=== PATIENT | female | born 1960 | race African-American/Black ===

== ENCOUNTER 2019-07-31 10:58 | Emergency (ER) | payer MEDICAID ==
[~2019-07-31] VITALS: Ht 167.6 cm; Wt 89.8 kg
[2019-07-31 11:10] VITALS: BP 141/88
--- NOTE | 2019-07-31 11:10 | NUR ---
ED Nurse Note: Patient walked into ED from home c/o of angioedema flare-up. Per patient, she has had angioedema since she was a child. Patient states her left cheek and lips became swollen, and she comes into the ED once she feels her tongue start to swell. Patient AxO x 4, no s/s of acute distress. VSS.
[2019-07-31] MEDS ORDERED: DiphenhydrAMINE 50mg/ml Inj IVP ONE (11:15)
[2019-07-31] MEDS ORDERED: Solu-MEDROL 125mg Inj IVP ONE (11:15)
--- NOTE | 2019-07-31 11:19 | Emergency Room Report ---
History of Present Illness General Chief Complaint: Allergic Reaction Source: Patient Present Illness HPI 58-year-old female history of urticaria presented for possible allergic reaction. She states she woke up this morning with some left-sided facial swelling and urticaria. She has unknown allergies besides penicillin at this time. She denies any new soaps lotions creams or foods. No shortness of breath nausea or vomiting. Seen last month at an outside facility for the same prescribed antihistamines and steroids with improvement. She does carry an EpiPen but has not had to use it in the past Allergies: Coded Allergies: PENICILLINS (Verified Allergy, Unknown, 07/31/19) Nursing Documentation-[facility] Past Medical History: No Stated History Review of Systems All Other Systems: negative except mentioned in HPI Physical Exam Vital Signs Date Time Temp Pulse Resp B/P (MAP) Pulse Ox O2 Delivery O2 Flow Rate FiO2 07/31/19 11:02 97.9 100 15 141/88 (105) 96 Room Air Sp02 EP Interpretation: reviewed, normal General Appearance: well appearing, no apparent distress Head: normocephalic, atraumatic Eyes: bilateral eye PERRL, bilateral eye EOMI ENT: hearing grossly normal, moist mucus membranes, other - No obvious oral edema noted, lower lip swelling noted, left facial edema noted Neck: full range of motion, supple Respiratory: lungs clear, normal breath sounds, no rhonchi, no respiratory distress, no retraction, no wheezing Cardiovascular #1: normal peripheral pulses, no murmur, other - Accelerated rate with regular rhythm Gastrointestinal: non tender, soft, non-distended, no guarding Neurologic: alert, oriented x3, no focal defects Skin: normal color, warm/dry Medical Decision Making Diagnostic Impression: Primary Impression: Allergic reaction ER Course Differential diagnosis included but not limited to allergic reaction, urticaria , angioedema was considered however patient had no obvious oral edema. No respiratory distress. Patient does not appear to be in anaphylaxis at this time. Patient given IV Solu-Medrol, Pepcid, Benadryl with improvement of symptoms. Patient observed in the ER for approximately 2 hours. After 2 hours of observation patient improved. No acute distress. Swelling improved. Will be discharged with prednisone, Pepcid and antihistamines. Patient already has an EpiPen to use as needed. She was given strict return precautions. She does have follow-up with allergy in 3 weeks. Last Vital Signs Date Time Temp Pulse Resp B/P (MAP) Pulse Ox O2 Delivery O2 Flow Rate FiO2 07/31/19 11:02 97.9 100 15 141/88 (105) 96 Room Air Status: improved Disposition: HOME, SELF-CARE Condition: Stable Scripts Famotidine* (Pepcid 20mg tablet*) 20 Mg Tablet 20 MG ORAL TWICE A DAY, #60 TAB 0 Refills Prov: Asif Lagos M.D. 07/31/19 Prednisone* (PREDNISONE*) 20 Mg Tablet 40 MG ORAL DAILY, #8 TAB Prov: Asif Lagos M.D. 07/31/19 Diphenhydramine HCl (Benadryl) 25 Mg Capsule 25 MG PO EVERY 6 HOURS PRN for Itching, #30 CAP Prov: Asif Lagos M.D. 07/31/19 Additional Instructions: Patient is instructed to follow-up with her primary care doctor, primary care clinic or formerly [facility] clinic in 1 to 2 days. Patient instructed to return for any worsening symptoms or concerns. Please note that the documentation in this note was used with [employer] technology. Pleae be advised that this may lead to erroneous text due to misinterpretation by the dictation software Asif Lagos M.D. Jul 31, 2019 11:19
--- NOTE | 2019-07-31 11:45 | NUR ---
ED Nurse Note: Patient tolerating medications well. Lessening of facial swelling noted, patient states she is feeling better than when she came in.
[2019-07-31] MEDS ORDERED: BENADRYL25 M3 PO (12:45)
[2019-07-31] MEDS ORDERED: PREDNISONE20 MG ORAL (12:45)
[2019-07-31] MEDS ORDERED: FAMOTIDINE20 MG ORAL (12:45)
[2019-07-31 12:55] VITALS: BP 139/82
--- NOTE | 2019-07-31 12:55 | NUR ---
ED Nurse Note: Patient cleared for DC by Dr. Lagos. Patient's facial swelling has subsided, and she requested to leave. Patient AxO x 4, walks with steady gait, has all belongings. IV and ID band removed.
== END 2019-07-31 12:55 | disposition home or self-care (01) ==
LOC: EMR 11:40
DX: T78.40XA Allergy, unspecified, initial encounter (principal); X58.XXXA Exposure to other specified factors, initial encounter; R60.0 Localized edema; Z88.0 Allergy status to penicillin
CPT/HCPCS: 96374; 96375; J1200; J2930; S0028; Z7502; 99284